=== PATIENT | male | born 1995 | race Caucasian/White ===

== ENCOUNTER 2017-03-21 22:56 | Emergency (ER) | payer OTHER ==
[2017-03-21] MEDS ORDERED: IOHEXOL 300 MG/ML 75 ML VIAL. IV ONE (23:45)
[2017-03-21] MEDS ORDERED: CONTRAST GIVEN MC PRN (23:45)
[2017-03-21] MEDS ORDERED: methylPREDNISolone SOD SUCC PF 125 MG/2 ML VIAL. IV ONE (23:45)
[2017-03-21] MEDS ORDERED: IPRATRPIUM/ALBUTEROL 0.5/2.5MG 3 ML NEBU. NEB ONE (23:45)
[2017-03-21] MEDS ORDERED: IV NORMAL SALINE 1,000ML 500 ML IV SCH (23:45)
[2017-03-21] MEDS ORDERED: FAMOTIDINE 20 MG/2 ML VIAL IVP ONE (23:45)
[2017-03-22 00:26] LABS: BASO # 0.2 x10^3/uL (0.0-0.2); BASO % 1 % (0-3); EOS # 0.1 x10^3/uL (0.0-0.7); EOS % 1 % (0-3); HEMATOCRIT 41.6 % (39.0-53.0); HEMOGLOBIN 13.7 g/dL (13.0-17.5); LYMPH # 10.3 x10^3/uL (1.0-4.8); LYMPH % 74 % (24-48); MEAN CORPUSCULAR HEMOGLOBIN 28 pg (25-35); MEAN CORPUSCULAR HGB CONC 33 g/dL (31-37); MEAN CORPUSCULAR VOLUME 86 fL (79-100); MONO # 1.4 x10^3/uL (0.0-1.1); MONO % 10 % (0-9); NEUT % 14 % (31-73); PLATELET COUNT 144 x10^3/uL (140-400); RED BLOOD COUNT 4.87 x10^6/uL (4.30-5.70); RED CELL DISTRIBUTION WIDTH 14.5 % (11.5-14.5)
[2017-03-22] MEDS ORDERED: IV NORMAL SALINE 50ML 50 ML ONE (00:30)
[2017-03-22] MEDS ORDERED: cefTRIAXone SODIUM 1 GM VIAL IV ONE (00:30)
--- NOTE | 2017-03-22 00:30 | RAD ---
Examination: CT soft tissue neck with IV contrast HISTORY: History of left-sided neck swelling. COMPARISON: None TECHNIQUE: Axial CT images of the soft tissue neck were performed with IV contrast. Coronal and sagittal reformats were performed. Exposure: One or more of the following individualized dose reduction techniques were utilized for this examination: 1. Automated exposure control 2. Adjustment of the mA and/or kV according to patient size 3. Use of iterative reconstruction technique. FINDINGS: The visualized parotid glands demonstrate small subcentimeter lymph nodes within. There are multiple enlarged appearing lymph nodes identified in the bilateral cervical lymph node region , with the largest measuring 3.1 cm on the left and 2.7 cm on the right. The enlarged cervical lymph nodes are identified throughout the bilateral cervical lymph node region including the submandibular, region and in the lower neck. Few enlarged superior mediastinal lymph nodes identified with the largest measuring 1.5 cm. The visualized apical lungs are clear. The visualized thyroid gland grossly appears unremarkable. The parapharyngeal spaces, vallecula, piriform sinuses grossly appears unremarkable. No evidence of bony destructive lesion. IMPRESSION: 1. Multiple enlarged cervical lymphadenopathy diffusely seen in the bilateral neck region. Differential includes lymphoma, reactive lymphadenopathy. 2. Few enlarged superior mediastinal lymph nodes. Electronically signed by: Preet Devries MD (03/22/2017 12:26 AM)
[2017-03-22 00:35] LABS: ALBUMIN 4.1 g/dL (3.4-5.0); ALBUMIN/GLOBULIN RATIO 1.1 (1.0-1.7); CALCIUM 8.9 mg/dL (8.5-10.1); CREATININE 1.2 mg/dL (0.7-1.3); POTASSIUM 3.5 mmol/L (3.5-5.1); TOTAL BILIRUBIN 0.9 mg/dL (0.2-1.0)
[2017-03-22 00:42] LABS: MONONUCLEOSIS PATIENT POSITIVE (NEGATIVE)
[2017-03-22 00:52] LABS: % BANDS 2 % (0-9); % LYMPHS 35 % (24-48); % MONOS 4 % (0-10); % SEGS 14 % (35-66)
[2017-03-22 00:53] LABS: PLT ESTIMATE ADEQUATE (ADEQUATE)
--- NOTE | 2017-03-22 00:59 | PHYS DOC ---
General Chief Complaint: Neck Pain Stated Complaint: NECK SWELLING Time Seen by MD: 23:04 Source: patient, family Exam Limitations: no limitations Problems: History of Present Illness Initial Comments Patient is a 21-year-old male brought to the ED by his mom with left-sided neck swelling. Patient states that yesterday he noted mild swelling on the left side of his neck. He had some trouble sleeping last night as he had trouble breathing, he felt like he had an asthma attack at one point during the night however it resolved with him sleeping in a more upright position. Today his neck is been stiff all day due to the left-sided swelling. The swelling is somewhat tender and mildly warm he had a scratchy throat yesterday and has felt more tired than normal for few days but otherwise has had no related symptoms. Today he notices that he runs out of breath more easily and has been having difficulty swallowing. He's noted no fevers chills sweats or body aches no cough headache nausea vomiting or diarrhea. He has a cat at home but denies any recent bites or scratches from it. He denies tick bites or other traumas. He has no immune suppression and is normally healthy his immunizations are up-to-date. ED vital signs: 99.9, 103, 135/70, 96% room air Timing/Duration: yesterday Severity: severe Location: throat Prearrival Treatment: no prearrival treatment Modifying Factors: worse with activity, worse with coughing, improves with rest Associated Symptoms: facial pain/swelling, malaise, sore throat, other Allergies: Coded Allergies: No Known Allergies (Verified Allergy, Unknown, 03/21/17) Past Medical History Medical History: no pertinent history Surgical History: noncontributory Social History Smoker: non-smoker Alcohol: none Drugs: none Constitutional: denies chills, denies diaphoresis, denies fever, malaise Ears: denies dizziness, denies pain, denies tinnitus Nose: denies clots, denies congestion, denies epistaxis Throat: pain, swelling, denies discharge, neck stiffness, hoarse, painful swallowing, denies difficulty with fluids Respiratory: denies cough, shortness of breath, denies wheezing Cardiovascular: denies chest pain, denies palpitations, denies syncope Gastrointestinal: denies abdominal pain, denies diarrhea, denies nausea, denies vomiting Musculoskeletal: see HPI, denies back pain, denies joint swelling Neurological: denies headache, denies numbness, denies paresthesia, denies weakness Physical Exam General Appearance: WD/WN, no apparent distress Eyes: bilateral eye normal inspection, bilateral eye PERRL, bilateral eye EOMI Ears: right ear TM normal, left ear other (serous fluid noted), bilateral ear auricle normal, bilateral ear canal normal Nose: normal inspection Mouth/Throat: other (pharynx is red with some exudate airway is patent) Neck: other (tender mass left neck with neck stiffness trachea is midline neck is supple) Cardiovascular/Respiratory: regular rate, rhythm, normal peripheral pulses, normal breath sounds, no respiratory distress 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 PHYSICIAN: NEEL REINA DO REASON: Left neck swelling PROCEDURE: CT SOFT TISSUE NECK W/CONTRAST Examination: CT soft tissue neck with IV contrast HISTORY: History of left-sided neck swelling. COMPARISON: None TECHNIQUE: Axial CT images of the soft tissue neck were performed with IV contrast. Coronal and sagittal reformats were performed. Exposure: One or more of the following individualized dose reduction techniques were utilized for this examination: 1. Automated exposure control 2. Adjustment of the mA and/or kV according to patient size 3. Use of iterative reconstruction technique. FINDINGS: The visualized parotid glands demonstrate small subcentimeter lymph nodes within. There are multiple enlarged appearing lymph nodes identified in the bilateral cervical lymph node region , with the largest measuring 3.1 cm on the left and 2.7 cm on the right. The enlarged cervical lymph nodes are identified throughout the bilateral cervical lymph node region including the submandibular, region and in the lower neck. Few enlarged superior mediastinal lymph nodes identified with the largest measuring 1.5 cm. The visualized apical lungs are clear. The visualized thyroid gland grossly appears unremarkable. The parapharyngeal spaces, vallecula, piriform sinuses grossly appears unremarkable. No evidence of bony destructive lesion. IMPRESSION: 1. Multiple enlarged cervical lymphadenopathy diffusely seen in the bilateral neck region. Differential includes lymphoma, reactive lymphadenopathy. 2. Few enlarged superior mediastinal lymph nodes. Electronically signed by: Preet Devries MD (03/22/2017 12:26 AM) DICTATED AND SIGNED BY: PREET DEVRIES MD DATE: 03/22/17 0020 CC: LEX BARRAGAN; NEEL REINA DO ~ White blood cells 14, lymphocytes 74, monocytes 10, bands 2, AST 84, ALT 152, rapid strep negative, mononucleosis screen positive 0101: Patient has not noticed any real improvement in his neck swelling. Although he has not noticed it worsen in any he still has potential airway compromise issues and should be monitored overnight. 0115: I discussed the patient with Dr. Campos who accepts telemetry observation admission for IV Solu-Medrol and monitoring while neck swelling is treated. Departure Time of Disposition: 01:06 Disposition: 05 XFER OTHER Diagnosis: infectious mononucleosis, neck swelling Condition: STABLE Additional Instructions: EMS transfer to [facility] for telemetry admission Dr. Campos is accepting. NEEL REINA DO Mar 22, 2017 00:59
[2017-03-22 01:25] VITALS: BP 131/70
--- NOTE | 2017-03-22 07:37 | RAD ---
EXAM: Chest one view. HISTORY: Shortness of breath, asthma. COMPARISON: None. FINDINGS: A frontal view of the chest is obtained. There are no confluent infiltrates. The lungs are expanded to the 9th posterior interspaces without clear hyperinflation. There is no pneumothorax or pleural effusion. The heart is not enlarged. IMPRESSION: 1. No confluent infiltrates.
== END 2017-03-22 03:20 | disposition short-term general hospital (02) ==
LOC: ER 22:56
DX: B27.90 Infectious mononucleosis, unspecified without complication (principal); R22.1 Localized swelling, mass and lump, neck; J45.909 Unspecified asthma, uncomplicated
CPT/HCPCS: 36415; 70491; 71010; 80053; 83605; 85007; 85027; 86308; 87040; 87070; 87880; 94640; 96365; 96375; 99285; J0696; J2930; J7620; Q9967; S0028; J7030